=== PATIENT | female | born 1960 ===

== ENCOUNTER 2017-04-23 14:18 | Emergency (ER) | payer MEDICARE, MEDICAID ==
[2017-04-23 14:18] VITALS: BMI 22.3
--- NOTE | 2017-04-23 15:31 | C.PDOC ---
History Of Present Illness 57 yr old female brought in via EMS, presents to the ER stating while opening the door at [place], she tripped and landed on her right knee. Patient states she now has pain to the right knee. Denies back pain, leg pain, foot pain, weakness or numbness. Time Seen by Provider: 04/23/17 14:22 Chief Complaint (Nursing): Lower Extremity Problem/Injury History Per: Patient History/Exam Limitations: no limitations Onset/Duration Of Symptoms: Sudden Onset ([employer]KEM[employer]) - Knee Description Of Injury: Fell Past Medical History Reviewed: Historical Data, Nursing Documentation, Vital Signs Vital Signs: Last Vital Signs Temp 98.0 F 04/23/17 16:27 Pulse 62 04/23/17 16:27 Resp 18 04/23/17 16:27 BP 134/84 04/23/17 16:27 Pulse Ox 97 04/23/17 16:27 - Medical History PMH: Anxiety, Arthritis (back), Back Problems, Bronchitis, Emphysema, Fractures (RT ANKLE FX W/HARDWARE), Rheumatoid Arthritis - [facility] Procedures ANESTH INJEC PERIPH NERV (08/16/13) ANESTH INJECT-SPIN CANAL (09/05/14) INJECT STEROID (09/05/14) INJECT/INFUSE NEC (10/11/12) LUMBOSAC SPINE X-RAY NEC (09/05/14) PERIPH NERVE DESTRUCTION (04/18/14) PERIPH NERVE INJECT NEC (08/16/13) PHYSICAL THERAPY NEC (11/29/12) SPINAL CANAL INJECT NEC (09/05/14) Family History: States: No Known Family Hx - Social History Hx Tobacco Use: Yes Hx Alcohol Use: No (Denied) Hx Substance Use: No (Denied) - Immunization History Hx Tetanus Toxoid Vaccination: No Hx Influenza Vaccination: Yes Hx Pneumococcal Vaccination: Yes Review Of Systems Except As Marked, All Systems Reviewed And Found Negative. Musculoskeletal: Positive for: Other ((+) Right knee pain). Negative for: Back Pain, Leg Pain, Foot Pain Neurological: Negative for: Weakness, Numbness Physical Exam - Physical Exam Appears: Non-toxic, No Acute Distress Skin: Warm, Dry, No Rash Head: Atraumatic, Normacephalic Extremity: No Calf Tenderness, Other (Right Knee - Mild to moderate swelling to the anterior knee. Tenderness. Limited ROM secondary to pain.) Pulses: Left Dorsalis Pedis: Normal, Right Dorsalis Pedis: Normal Neurological/Psych: Oriented x3, Normal Speech, Normal Motor, Normal Sensation Gait: Steady ED Course And Treatment O2 Sat by Pulse Oximetry: 100 (RA) Pulse Ox Interpretation: Normal - Other Rad X-Ray - Right Knee X-Ray: Viewed By Me, Read By Radiologist Interpretation: PROCEDURE: Right Knee Radiographs. HISTORY: knee injury, pain. COMPARISON: 03/10/2017. FINDINGS: BONES: There is no acute displaced fracture or bone destruction. Bone alignment is normal. There is diffuse bone demineralization. JOINTS: There is moderate tricompartmental degenerative osteoarthrosis with reduced joint spaces and marginal osteophytes. JOINT EFFUSION: There is a moderate suprapatellar joint effusion. OTHER FINDINGS: None. IMPRESSION: Moderate tricompartmental degenerative osteoarthrosis and moderate suprapatellar joint effusion. No acute fracture or dislocation. Medical Decision Making Medical Decision Making: PLAN: * X-Ray - Right Knee * Tylenol PO Knee immobilizer and crutches were placed on the patient. Blood pressure was found to be elevated. Patient was informed of the BP and she reports that she a history of high BP but has not been placed on medications. Clonidine given and the patient was instructed to follow up with the PMD/clinic for BP re-check. Disposition - Disposition Referrals: Jona Faye III, MD [Staff Provider] - Carlos Hines MD [Staff Provider] - [facility] [Outside] Disposition: HOME/ ROUTINE Disposition Time: 15:56 Condition: GOOD Additional Instructions: Follow up with the medical doctor within 1-2 days. Return if worsened. 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 - Scribe Statement The provider has reviewed the documentation as recorded by the Scribe Kayleen Murphy All medical record entries made by the Scribe were at my direction and personally dictated by me. I have reviewed the chart and agree that the record accurately reflects my personal performance of the history, physical exam, medical decision making, and the department course for this patient. I have also personally directed, reviewed, and agree with the discharge instructions and disposition.
[2017-04-23 15:53] VITALS: RESP 18
--- NOTE | 2017-04-23 16:01 | RAD ---
PROCEDURE: Right Knee Radiographs. HISTORY: knee injury, pain COMPARISON: 03/10/2017 FINDINGS: BONES: There is no acute displaced fracture or bone destruction. Bone alignment is normal. There is diffuse bone demineralization. JOINTS: There is moderate tricompartmental degenerative osteoarthrosis with reduced joint spaces and marginal osteophytes. JOINT EFFUSION: There is a moderate suprapatellar joint effusion. OTHER FINDINGS: None. IMPRESSION: Moderate tricompartmental degenerative osteoarthrosis and moderate suprapatellar joint effusion. No acute fracture or dislocation.
[2017-04-23 16:27] VITALS: BP 134/84; PULSE 62; TEMP 98
[2017-04-25 02:02] VITALS: O2SAT 100
== END 2017-04-23 16:42 | disposition home or self-care (01) ==
LOC: C.ER 14:18
DX: S89.91XA Unspecified injury of right lower leg, initial encounter (principal); W01.0XXA Fall on same level from slipping, tripping and stumbling without subsequent striking against object, initial encounter; Y92.512 Supermarket, store or market as the place of occurrence of the external cause; M06.9 Rheumatoid arthritis, unspecified; Z87.891 Personal history of nicotine dependence

== ENCOUNTER 2018-01-01 10:36 | Emergency (ER) | payer MEDICARE, MEDICAID ==
[2018-01-01 10:37] VITALS: BMI 22.3
--- NOTE | 2018-01-01 12:08 | C.PDOC ---
History Of Present Illness 57 year old female, with history of RA and herniated discs, presents to the emergency department with pain to her bilateral legs since this morning. She notes of numbness and "tingling feeling in her legs" but denies trauma. Patient ambulatory and was able to walk into the ER. Time Seen by Provider: 01/01/18 10:58 Chief Complaint (Nursing): Lower Extremity Problem/Injury History Per: Patient History/Exam Limitations: no limitations Onset/Duration Of Symptoms: Hrs Current Symptoms Are (Timing): Still Present Past Medical History Reviewed: Historical Data, Nursing Documentation, Vital Signs Vital Signs: Last Vital Signs Temp 98.1 F 01/01/18 13:02 Pulse 79 01/01/18 13:02 Resp 16 01/01/18 13:02 BP 113/76 01/01/18 13:02 Pulse Ox 98 01/01/18 13:02 - Medical History PMH: Anxiety, Arthritis (back), Back Problems, Bronchitis, Emphysema, Fractures (RT ANKLE FX W/HARDWARE), Osteoporosis, Rheumatoid Arthritis Denies: Chronic Kidney [facility] ANESTH INJEC PERIPH NERV (08/16/13) ANESTH INJECT-SPIN CANAL (09/05/14) INJECT STEROID (09/05/14) INJECT/INFUSE NEC (10/11/12) LUMBOSAC SPINE X-RAY NEC (09/05/14) PERIPH NERVE DESTRUCTION (04/18/14) PERIPH NERVE INJECT NEC (08/16/13) PHYSICAL THERAPY NEC (11/29/12) SPINAL CANAL INJECT NEC (09/05/14) Family History: States: No Known Family Hx - Social History Hx Tobacco Use: Yes Hx Alcohol Use: No Hx Substance Use: No - Immunization History Hx Tetanus Toxoid Vaccination: No Hx Influenza Vaccination: Yes Hx Pneumococcal Vaccination: Yes Review Of Systems Except As Marked, All Systems Reviewed And Found Negative. Constitutional: Negative for: Fever, Chills Cardiovascular: Negative for: Chest Pain Gastrointestinal: Negative for: Nausea, Vomiting Musculoskeletal: Positive for: Leg Pain (bilaterally) Neurological: Positive for: Numbness. Negative for: Weakness Physical Exam - Physical Exam Appears: Non-toxic, No Acute Distress Skin: Warm, Dry, No Rash Head: Atraumatic, Normacephalic Eye(s): bilateral: Normal Inspection Oral Mucosa: Moist Neck: Normal ROM Cardiovascular: Rhythm Regular Respiratory: Normal Breath Sounds, No Rales, No Rhonchi, No Wheezing Gastrointestinal/Abdominal: Bowel Sounds (normal), Soft, No Tenderness Extremity: Tenderness (to bilateral ankles and calves), No Swelling (in legs bilaterally) Neurological/Psych: Oriented x3, Normal Motor, Normal Sensation Gait: Steady ED Course And Treatment O2 Sat by Pulse Oximetry: 99 (RA) Pulse Ox Interpretation: Normal Medical Decision Making Medical Decision Making: Plan: -Toradol -Vasclab Venous Duplex is negative for DVT. On re-exam, the patient reports improvement of symptoms. Lungs are CTA, heart is RRR. Abdomen is soft, non-tender and tolerating PO well. Follow up with the medical doctor within 1-2 days. Return if worsened. Disposition - Disposition Referrals: Kane Rodriguez MD [Staff Provider] - Disposition: HOME/ ROUTINE Disposition Time: 12:54 Condition: STABLE Additional Instructions: Follow up with the medical doctor/clinic within 1-2 days. return if worsened. 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 - Scribe Statement The provider has reviewed the documentation as recorded by the Scribe Arlette Herbert All medical record entries made by the Pachecoibe were at my direction and personally dictated by me. I have reviewed the chart and agree that the record accurately reflects my personal performance of the history, physical exam, medical decision making, and the department course for this patient. I have also personally directed, reviewed, and agree with the discharge instructions and disposition.
[2018-01-01 13:03] VITALS: BP 113/76; PULSE 79; RESP 16; TEMP 98.1
--- NOTE | 2018-01-02 15:11 | VASCLAB ---
Date of service: 01/01/2018 PROCEDURE: Lower Extremity Venous Duplex Exam. HISTORY: Pain, swelling. PRIORS: None. TECHNIQUE: Bilateral common femoral, femoral, popliteal and posterior tibial, peroneal and great saphenous veins were evaluated. Flow was assessed with color Doppler, compressibility, assessment of phasic flow and augmentation response. Report prepared by RADHA Deluca FINDINGS: RIGHT: 1. Common Femoral Vein: 1.1. Compressibility - Fully compressible: Thrombus - None : Flow - Phasic: Augmentation -Normal: Reflux - None. 2. Femoral Vein: 2.1. Compressibility - Fully compressible: Thrombus - None : Flow - Phasic: Augmentation -Normal: Reflux - None. 3. Popliteal Vein: 3.1. Compressibility - Fully compressible: Thrombus - None : Flow - Phasic: Augmentation -Normal: Reflux - None. 4. Posterior Tibial Vein: 4.1. Compressibility - Fully compressible: Thrombus - None: Flow - Phasic: Augmentation -Normal: Reflux - None. 5. Peroneal Vein: 5.1. Compressibility - Fully compressible: Thrombus - None: Flow - Phasic: Augmentation -Normal: Reflux - None. 6. Great Saphenous Vein: 6.1. Compressibility - Fully compressible: Thrombus - None: Flow - Phasic: Augmentation - Normal: Reflux - None. LEFT: 1. Common Femoral Vein: 1.1. Compressibility - Fully compressible: Thrombus - None: Flow - Phasic: Augmentation -Normal: Reflux - None. 2. Femoral Vein: 2.1. Compressibility - Fully compressible: Thrombus - None: Flow - Phasic: Augmentation -Normal: Reflux - None. 3. Popliteal Vein: 3.1. Compressibility - Fully compressible: Thrombus - None : Flow - Phasic: Augmentation -Normal: Reflux - None. 4. Posterior Tibial Vein: 4.1. Compressibility - Fully compressible: Thrombus - None: Flow - Phasic: Augmentation -Normal: Reflux - None. 5. Peroneal Vein: 5.1. Compressibility - Fully compressible: Thrombus - None: Flow - Phasic: Augmentation -Normal: Reflux - None. 6. Great Saphenous Vein: 6.1. Not visualized. OTHER FINDINGS: Right: None significant. Left: None significant. IMPRESSION: Right: No evidence of deep or superficial vein thrombosis of the right lower extremity. Normal valve function noted of the right side. Left: No evidence of deep or superficial vein thrombosis of the left lower extremity. Normal valve function noted of the left side.
[2018-01-02 18:16] VITALS: O2SAT 99
== END 2018-01-01 13:08 | disposition home or self-care (01) ==
LOC: C.ER 10:36
DX: M79.605 Pain in left leg (principal); M79.604 Pain in right leg
CPT/HCPCS: 93970; 96372; 99283; J1885

== ENCOUNTER 2018-05-09 17:24 | Emergency (ER) | payer MEDICARE, MEDICAID ==
[2018-05-09 17:25] VITALS: BMI 22.3
[2018-05-09 17:33] VITALS: BP 144/79; PULSE 98; RESP 18; TEMP 98; O2SAT 100
--- NOTE | 2018-05-09 19:27 | C.PDOC ---
History Of Present Illness 58 y/o female comes in complaining of pain and swelling to her right knee since 2 days ago. Patient states that she was coming out of the bathtub and placed her left foot out when she slipped and hit her right knee inside the tub. Patient complains the pain has been worsening since. Patient has tried taking pain medications at home but no relief. Reports she had a fracture on her knee last year when she fell and has a history of arthritis.Patient has no other symptoms. Time Seen by Provider: 05/09/18 18:27 Chief Complaint (Nursing): Lower Extremity Problem/Injury History Per: Patient History/Exam Limitations: no limitations Onset/Duration Of Symptoms: Days Current Symptoms Are (Timing): Still Present Past Medical History Reviewed: Historical Data, Nursing Documentation, Vital Signs Vital Signs: Last Vital Signs Temp 98 F 05/09/18 17:30 Pulse 98 H 05/09/18 17:30 Resp 18 05/09/18 17:30 BP 144/79 05/09/18 17:30 Pulse Ox 100 05/09/18 17:30 - Medical History PMH: Anxiety, Arthritis, Back Problems, Bronchitis, Emphysema, Fractures (RT ANKLE FX W/HARDWARE), Osteoporosis, Rheumatoid Arthritis Denies: Chronic Kidney Disease - [facility] Procedures ANESTH INJEC PERIPH NERV (08/16/13) ANESTH INJECT-SPIN CANAL (09/05/14) INJECT STEROID (09/05/14) INJECT/INFUSE NEC (10/11/12) LUMBOSAC SPINE X-RAY NEC (09/05/14) PERIPH NERVE DESTRUCTION (04/18/14) PERIPH NERVE INJECT NEC (08/16/13) PHYSICAL THERAPY NEC (11/29/12) SPINAL CANAL INJECT NEC (09/05/14) Family History: States: No Known Family Hx - Social History Hx Tobacco Use: Yes Hx Alcohol Use: No Hx Substance Use: No - Immunization History Hx Tetanus Toxoid Vaccination: No Hx Influenza Vaccination: No Hx Pneumococcal Vaccination: No Review Of Systems Except As Marked, All Systems Reviewed And Found Negative. Musculoskeletal: Positive for: Other (Knee pain) Physical Exam - Physical Exam Appears: Non-toxic, No Acute Distress Skin: Warm, Dry Head: Atraumatic, Normacephalic Eye(s): bilateral: Normal Inspection Oral Mucosa: Moist Neck: Supple Chest: Symmetrical Cardiovascular: Rhythm Regular, No Murmur Respiratory: Normal Breath Sounds, No Rales, No Rhonchi, No Wheezing Extremity: Tenderness (diffuse tenderness and swelling in anterior knee), Capillary Refill (less than 2 seconds) Pulses: Left Dorsalis Pedis: Normal, Right Dorsalis Pedis: Normal Neurological/Psych: Oriented x3, Normal Speech ED Course And Treatment O2 Sat by Pulse Oximetry: 100 (RA) Pulse Ox Interpretation: Normal Medical Decision Making Medical Decision Making: Impression: Knee injury Plan: --Right knee XR --Ibuprofen PO XR preliminary read, no fractures. Patient will be discharged with knee immobilizer and crutches. Advised patient to follow up with PMD within 2 days for further evaluation. Disposition Counseled Patient/Family Regarding: Studies Performed, Diagnosis, Need For Followup, Rx Given - Disposition Referrals: Kane Rodriguez MD [Staff Provider] - Disposition: HOME/ ROUTINE Disposition Time: 20:02 Condition: STABLE Additional Instructions: follow up with your doctor within 2 days call to make an appointment apply ice to injured area take pain medication as needed return to ER if symptoms worsens or progress Prescriptions: Naproxen [Naprosyn] 500 mg PO BID PRN #16 tab PRN Reason: Pain, Moderate (4-7) Instructions: Contusion (DC) Forms: [facility] (Andorran), General Discharge Instructions - Clinical Impression Clinical Impression: Contusion - Scribe Statement The provider has reviewed the documentation as recorded by the Jean Paul Herbert Provider Attestation: All medical record entries made by the Pachecoibkelvin were at my direction and personally dictated by me. I have reviewed the chart and agree that the record accurately reflects my personal performance of the history, physical exam, medical decision making, and the department course for this patient. I have also personally directed, reviewed, and agree with the discharge instructions and disposition.
--- NOTE | 2018-05-10 08:21 | RAD ---
Date of service: 05/09/2018 PROCEDURE: Right Knee Radiographs. HISTORY: knee injury COMPARISON: 04/23/2017 FINDINGS: BONES: No fracture appreciated. JOINTS: Tricompartmental osteoarthrosis-per reduced joint space and osteophytosis. Lateral femoral tibial and patellofemoral joints - most affected. JOINT EFFUSION: Interval increase joint suprapatellar effusion. Possible posterior joint effusion as well OTHER FINDINGS: Atherosclerotic vascular calcifications present. IMPRESSION: No interval fracture or dislocation. Interval increased joint effusion. Background moderate to severe osteoarthrosis
== END 2018-05-09 20:35 | disposition home or self-care (01) ==
LOC: C.ER 17:24
DX: S80.01XA Contusion of right knee, initial encounter (principal); W18.2XXA Fall in (into) shower or empty bathtub, initial encounter

== ENCOUNTER → 2018-06-07 | Emergency (ER) | payer MEDICARE, MEDICAID ==
[~2018-06-07] MED LIST: Albuterol 0.083% Inhal Sol (2.5 mg/3 mL) UD INH STA; Albuterol 0.083% Inhal Sol (2.5 mg/3 mL) UD ONE; Azithromycin 500 MG in Sodium Chloride 0.9% 250 ML IVPB STA; Azithromycin 500mg/250ML NS 500 MG/250 ML BAG IVPB ONE; Lidocaine 5% Patch TD ONE; Lidocaine 5% Patch TD SCH
[2018-06-07 16:35] VITALS: BMI 21.7
[2018-06-07 16:36] VITALS: BP 115/77; PULSE 82; RESP 17; TEMP 98.8; O2SAT 96
--- NOTE | 2018-06-07 17:09 | C.PDOC ---
History Of Present Illness Patient is a 58 year old female, with a PMHx of COPD and chronic pain, who presents to the ED c/o right posterior inferior rib pain that has been present for 2 days. Patient states that her pain is worse with movement and inspiration. She states that she takes Naprosyn and Percocet for her chronic pain, but has not taken any for her present symptoms. Patient denies any DVT/PE hx, CP, abdominal pain, cough, recent travel, or trauma. Smoker. Time Seen by Provider: 06/07/18 16:39 Chief Complaint (Nursing): Shortness Of Breath History Per: Patient History/Exam Limitations: no limitations Onset/Duration Of Symptoms: Days (2) Quality: "Pain" (right posterior inferior rib pain ) Associated Symptoms: denies: Chest Pain, Bloody Cough, Productive Cough, Other (abdominal pain ) Recent travel outside of the [place]: No Additional History Per: Patient Past Medical History Reviewed: Historical Data, Nursing Documentation, Vital Signs Vital Signs: Last Vital Signs Temp 98.8 F 06/07/18 16:36 Pulse 82 06/07/18 16:36 Resp 17 06/07/18 16:36 BP 115/77 06/07/18 16:36 Pulse Ox 96 06/07/18 16:36 - Medical History PMH: Anxiety, Arthritis, Back Problems, Bronchitis, Emphysema, Fractures (RT ANKLE FX W/HARDWARE), Osteoporosis, Rheumatoid Arthritis Denies: Chronic Kidney Disease Surgical History: No Surg Hx - [facility] Procedures ANESTH INJEC PERIPH NERV (08/16/13) ANESTH INJECT-SPIN CANAL (09/05/14) INJECT STEROID (09/05/14) INJECT/INFUSE NEC (10/11/12) LUMBOSAC SPINE X-RAY NEC (09/05/14) PERIPH NERVE DESTRUCTION (04/18/14) PERIPH NERVE INJECT NEC (08/16/13) PHYSICAL THERAPY NEC (11/29/12) SPINAL CANAL INJECT NEC (09/05/14) Family History: States: No Known Family Hx - Social History Hx Tobacco Use: Yes Hx Alcohol Use: No Hx Substance Use: No - Immunization History Hx Tetanus Toxoid Vaccination: No Hx Influenza Vaccination: No Hx Pneumococcal Vaccination: No Review Of Systems Except As Marked, All Systems Reviewed And Found Negative. Respiratory: Positive for: Shortness of Breath, Other (Rib pain ) Physical Exam - Physical Exam Appears: Non-toxic, No Acute Distress Skin: Normal Color, Warm, Dry Head: Atraumatic, Normacephalic Eye(s): bilateral: Normal Inspection, PERRL, EOMI Nose: Normal Oral Mucosa: Moist Chest: Symmetrical Cardiovascular: Rhythm Regular, No Murmur Respiratory: Other (distant lung sounds ) Gastrointestinal/Abdominal: Normal Exam, Soft, No Tenderness Back: Other (reproducible tenderness to right posterior inferior area ) Extremity: Normal ROM Neurological/Psych: Oriented x3, Normal Speech, Normal Cognition, Other (intact ) ED Course And Treatment - Laboratory Results Result Diagrams: 06/07/18 17:29 06/07/18 17:29 ECG Rhythm: Sinus Rhythm Interpretation Of ECG: Normal intervals, normal axis, poor R wave progression, no ST/T wave abnormalities Rate From EC O2 Sat by Pulse Oximetry: 96 (on RA) Pulse Ox Interpretation: Normal - Other Rad CXR X-Ray: Viewed By Me, Read By Radiologist Interpretation: IMPRESSION: Borderline cardiomegaly. COPD/emphysema. Left lower lobe opacity may represent atelectasis or pneumonia. Against Medical Advice - AMA Patient Left Against Medical Advice: The patient declines admission to the hospital and wishes to leave the Emergency Department. This action is against my medical advice. This decision was made with informed refusal. The patient was told that admission to the hospital is necessary. Explanation of the reasons why were discussed. The risks of leaving were explained to the patient and include, but are not limited to, worsening of known or currently unknown conditions, permanent disability and from undiagnosed or untreated conditions. The patient has the capacity to make this informed decision and understands my e xplanation of the current medical problem and risks of leaving. The patient voluntarily accepts these risks and signed an AMA form documenting our conversation. The patient was given the opportunity to ask questions and reconsider. The patient was encouraged to return to the Emergency Department at any time for further care. Medical Decision Making Medical Decision Making: Plan: EKG Labs CXR Nebulizer Albuterol 2.5mg INH Toradol 30mg IVP Disposition - Disposition Disposition: AGAINST MEDICAL ADVICE Disposition Time: 21:00 Condition: STABLE Forms: [employer] (Latvian) - Clinical Impression Clinical Impression: Chr obstructive pulmonary disease w/ acute lower respiratory infxn - Scribe Statement The provider has reviewed the documentation as recorded by the JeanP aul Lewis All medical record entries made by the Jean Paul were at my direction and personally dictated by me. I have reviewed the chart and agree that the record accurately reflects my personal performance of the history, physical exam, m edical decision making, and the department course for this patient. I have also personally directed, reviewed, and agree with the discharge instructions and disposition.
--- NOTE | 2018-06-07 17:21 | RAD ---
HISTORY: SOB COMPARISON: Chest x-ray performed 01/23/18, CT chest without IV contrast performed 01/24/18 TECHNIQUE: Chest PA and lateral FINDINGS: LUNGS: Hyperinflation may be seen in the setting of COPD. Increased lucencies especially within the bilateral upper lung perez compatible with underlying emphysema. Lower lobe opacity may reflect atelectasis or pneumonia. Please note that chest x-ray has limited sensitivity for the detection of pulmonary masses. PLEURA: No significant pleural effusion identified. No definite pneumothorax . CARDIOVASCULAR: Borderline cardiomegaly. OSSEOUS STRUCTURES: Degenerative changes. Osseous demineralization. VISUALIZED UPPER ABDOMEN: Mild elevation of the right hemidiaphragm. OTHER FINDINGS: None. IMPRESSION: Borderline cardiomegaly. COPD/emphysema. Left lower lobe opacity may represent atelectasis or pneumonia.
[2018-06-07 17:34] LABS: BASO # 0.1 K/uL (0.0-0.2); BASO % 0.5 % (0.0-2.0); EOS # 0.2 K/uL (0.0-0.7); EOS % 1.2 % (0.0-4.0); LYMPH # 2.5 K/uL (1.0-4.3); LYMPH % 19.3 % (20.0-40.0); MEAN CELL VOLUME 93.9 fL (81.0-99.0); MEAN CORPUSCULAR HEMOGLOBIN 30.4 pg (27.0-31.0); MEAN CORPUSCULAR HGB CONC 32.3 g/dL (33.0-37.0); MEAN PLATELET VOLUME 8.7 fL (7.2-11.7); MONO # 0.8 K/uL (0.0-0.8); NEUT # 9.4 K/uL (1.8-7.0); NRBC % 0.1 % (0.0-2.0); RBC 4.28 Mil/uL (3.80-5.20); RED CELL DISTRIBUTION WIDTH 14.8 % (11.5-14.5); WHITE BLOOD COUNT 12.9 K/uL (4.8-10.8)
[2018-06-07 17:43] LABS: PROTHROMBIN TIME 11.3 SECONDS (9.7-12.2)
[2018-06-07 17:45] LABS: ALB/GLOB RATIO 1.3 (1.0-2.1); ALBUMIN 3.9 g/dL (3.5-5.0); ALT/SGPT 17 U/L (9-52); AST/SGOT 24 U/L (14-36); BLOOD UREA NITROGEN 21 mg/dL (7-17); CALCIUM 8.8 mg/dl (8.6-10.4); GFR NON-AFRICAN AMERICAN > 60
[2018-06-07 17:57] LABS: B-TYPE NATRIURETIC PEPTIDE 117 pg/mL (0-900)
--- NOTE | 2018-06-08 08:53 | NM ---
Date of service: 06/07/2018 COMPARISON: 01/23/2018 ventilation-perfusion scan. 06/07/2018 two-view chest. TECHNIQUE: 10.9 mCi technetium 99-m [id number] Gas. 4.0 mCI technetium 99-m MAA administered intravenously. FINDINGS: VENTILATION COMPONENT: Mildly heterogeneous ventilation. Retention of radionuclide on the washout phases suggests underlying COPD. PERFUSION COMPONENT: Heterogeneous distribution of radionuclide. No geographic, segmental, lobar abnormalities apparent on the present examination. IMPRESSION: Low probability ventilation perfusion scan for pulmonary embolism. No significant interval change compared to the prior examination(s). Concordant findings (preliminary report) provided by [facility].
--- NOTE | 2018-06-09 16:05 | CARD ---
APPROVED REPORT Date of service: 06/07/2018 EKG Measurement Heart [id number] <Conclusion> Normal sinus rhythm Possible Left atrial enlargement Low voltage QRS Cannot rule out Anterior infarct, age undetermined Abnormal ECG
== END | disposition left against medical advice (07) ==
LOC: C.ER 16:28
DX: J44.0 Chronic obstructive pulmonary disease with (acute) lower respiratory infection (principal); M06.9 Rheumatoid arthritis, unspecified; M81.0 Age-related osteoporosis without current pathological fracture; Z72.0 Tobacco use
CPT/HCPCS: 71046; 78582; 80053; 83880; 84484; 85025; 85378; 85610; 85730; 96365; 96367; 96375; 99283; A9540; A9558; J0456; J0696; J1885; J2930; J7050